=== PATIENT | female | born 1990 | race Two or more races ===

== ENCOUNTER 2017-08-27 13:49 | Emergency (ER) | payer OTHER, MEDICAID ==
[~2017-08-27] VITALS: Ht 157.5 cm; Wt 51.0 kg
[~2017-08-27 13:49] MED LIST: NO HOME MEDS
[2017-08-27] MEDS ORDERED: CYCL-1 PO (14:47)
[2017-08-27 14:54] VITALS: BP 127/84
== END 2017-08-27 14:55 | disposition home or self-care (01) ==
LOC: ER 13:50
DX: M54.2 Cervicalgia (principal); M54.5 Low back pain; V89.2XXA Person injured in unspecified motor-vehicle accident, traffic, initial encounter; Y93.89 Activity, other specified; Y92.89 Other specified places as the place of occurrence of the external cause; Y99.8 Other external cause status
CPT/HCPCS: 72040; 72074; 99284

== ENCOUNTER 2018-10-25 08:18 | Emergency (ER) | payer MEDICAID, OTHER ==
[~2018-10-25] VITALS: Ht 162.6 cm; Wt 59.1 kg
[~2018-10-25 08:18] MED LIST changes: +CYCL-1 PO
[2018-10-25 08:26] VITALS: BP 111/71
[2018-10-25] MEDS ORDERED: TETanus/Pertussis (Acell)/Diphther VAC/PF (Tdap-Adult) 0.5ml syringe IM ONE (08:50)
[2018-10-25] MEDS ORDERED: CEPH500C5 PO (08:53)
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
== END 2018-10-25 09:24 | disposition home or self-care (01) ==
LOC: ER 08:20
DX: S41.031A Puncture wound without foreign body of right shoulder, initial encounter (principal); S00.81XA Abrasion of other part of head, initial encounter; S20.419A Abrasion of unspecified back wall of thorax, initial encounter; Y04.0XXA Assault by unarmed brawl or fight, initial encounter; Y93.89 Activity, other specified; Y92.89 Other specified places as the place of occurrence of the external cause; Y99.9 Unspecified external cause status
CPT/HCPCS: 90471; 90715; 99283

== ENCOUNTER 2019-03-03 15:06 | Emergency (ER) | payer MEDICAID, OTHER ==
[~2019-03-03] VITALS: Ht 157.5 cm; Wt 60.0 kg
[~2019-03-03 15:06] MED LIST changes: +CEPH500C5 PO
[2019-03-03 15:23] VITALS: BP 116/77
== END 2019-03-03 16:20 | disposition home or self-care (01) ==
LOC: ER 15:06
DX: L60.8 Other nail disorders (principal); Z79.2 Long term (current) use of antibiotics; Z79.899 Other long term (current) drug therapy
CPT/HCPCS: 99281; 99282

== ENCOUNTER 2020-07-04 13:57 | Emergency (ER) | payer MEDICAID, OTHER ==
[~2020-07-04] VITALS: Ht 157.5 cm; Wt 2.0 kg
[~2020-07-04 13:57] MED LIST changes: -CEPH500C5 PO
[2020-07-04 17:25] VITALS: BP 103/65
== END 2020-07-04 17:34 | disposition home or self-care (01) ==
LOC: ER 13:57
DX: R42 Dizziness and giddiness (principal); Z87.440 Personal history of urinary (tract) infections
CPT/HCPCS: 36415; 71045; 82948; 84702; 93005; 99285

== ENCOUNTER 2020-10-22 08:34 | Emergency (ER) | payer MEDICAID ==
[~2020-10-22] VITALS: Ht 157.5 cm; Wt 59.1 kg
[~2020-10-22 08:34] MED LIST changes: -CYCL-1 PO
[2020-10-22 09:10] VITALS: BP 104/64
[2020-10-22] MEDS ORDERED: LIDOcaine 1% W/epiNEPHrine 1:200,000 10ml vial IJ ONE (11:15)
[2020-10-22] MEDS ORDERED: MUPI22OI30 TP (11:36)
[2020-10-22] MEDS ORDERED: SULF1TAB49 PO (11:36)
--- NOTE | 2020-10-22 11:43 | NUR ---
PROVIDER IN ROOM FOR PROCEDURE I/D
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
== END 2020-10-22 12:16 | disposition home or self-care (01) ==
LOC: ER 08:34
DX: L02.413 Cutaneous abscess of right upper limb (principal); Z79.2 Long term (current) use of antibiotics; Z79.899 Other long term (current) drug therapy; Z87.440 Personal history of urinary (tract) infections
CPT/HCPCS: 10060; 99284

== ENCOUNTER 2021-06-08 14:40 | Emergency (ER) | payer MEDICAID ==
[~2021-06-08] VITALS: Ht 154.9 cm; Wt 59.0 kg
[2021-06-08 15:49] VITALS: BP 112/70
[2021-06-08] MEDS ORDERED: PENI500T2 PO (16:05)
[2021-06-08] MEDS ORDERED: IBUP-1984 PO (16:06)
== END 2021-06-08 16:16 | disposition home or self-care (01) ==
LOC: ER 14:40
DX: K04.7 Periapical abscess without sinus (principal)
CPT/HCPCS: 99283

== ENCOUNTER 2023-02-20 15:24 | Emergency (ER) | payer MEDICAID ==
[~2023-02-20] VITALS: Ht 157.5 cm; Wt 63.6 kg
[2023-02-20 15:37] VITALS: BP 103/44; PULSE 76; RESP 18; TEMP 99; O2SAT 97
[2023-02-20] MEDS ORDERED: dexamethasone sod phosphate 10mg/ml inj IM STA (16:27)
[2023-02-20] MEDS ORDERED: orphenadrine citrate 60mg/2ml inj. IM ONE (16:30)
[2023-02-20] MEDS ORDERED: CYCL-1 PO (17:03)
[2023-02-20] MEDS ORDERED: IBUP-1986 PO (17:03)
== END 2023-02-20 17:20 | disposition home or self-care (01) ==
LOC: ER 15:25
DX: M54.59 Other low back pain (principal); Z79.899 Other long term (current) drug therapy
CPT/HCPCS: 72100; 96372; 99284; J1100; J2360

== ENCOUNTER 2024-07-29 08:22 | Emergency (ER) | payer MEDICAID ==
[~2024-07-29] VITALS: Ht 157.5 cm; Wt 51.4 kg
[~2024-07-29 08:22] MED LIST changes: +CYCL-1 PO; +IBUP-1986 PO
[2024-07-29 10:20] VITALS: BP 118/67; PULSE 68; RESP 16; TEMP 98.6; O2SAT 98
== END 2024-07-29 10:25 | disposition home or self-care (01) ==
LOC: ER 08:23
DX: M25.531 Pain in right wrist (principal); W18.2XXA Fall in (into) shower or empty bathtub, initial encounter; Y93.E1 Activity, personal bathing and showering; Y92.89 Other specified places as the place of occurrence of the external cause; Y99.8 Other external cause status
CPT/HCPCS: 29125; 73110; 99283